=== PATIENT | male | born 1985 | race Caucasian/White ===

== ENCOUNTER 2017-04-09 19:27 | Emergency (ER) | payer SELFPAY ==
[2017-04-09] MEDS ORDERED: diPHENhydraMINE PO* 25 MG PO ONE (20:00)
[2017-04-09] MEDS ORDERED: predniSONE TAB* 20 MG PO ONE (21:18)
--- NOTE | 2017-04-09 21:20 | ED ---
Allergic Reaction/Systemic - HPI Summary HPI Summary: 31M presents with allergic reaction to bee sting on his left arm. no hives anywhere else on his body. no chest pain, abd pain, n/v, difficulty swallowing or SOB. has not taken anything. denies any previous allergies to bee stings. - History of Current Complaint Chief Complaint: EDAllergicReaction Time Seen by Provider: 04/09/17 19:59 Pain Intensity: 3 - Allergies/Home Medications Allergies/Adverse Reactions: Allergies Allergy/AdvReac Type Severity Reaction Status Date / Time No Known Allergies Allergy Verified 04/27/16 16:20 PMH/Surg Hx/FS Hx/Imm Hx Endocrine/Hematology History: Denies: Hx Anticoagulant Therapy, Hx Diabetes, Hx Thyroid Disease Cardiovascular History: Denies: Hx Congestive Heart Failure, Hx Deep Vein Thrombosis, Hx Hypertension , Hx Myocardial Infarction, Hx Pacemaker/ICD Respiratory History: Reports: Hx Asthma - EXERCISE INDUCED Denies: Hx Chronic Obstructive Pulmonary Disease (COPD), Hx Lung Cancer, Hx Pneumonia, Hx Pulmonary Embolism GI History: Denies: Hx Gall Bladder Disease, Hx Gastrointestinal Bleed, Hx Ulcer, Hx Urosepsis History: Denies: Hx Kidney Stones, Hx Renal Disease Musculoskeletal History: Denies: Hx Orthopedic Injury Neurological History: Denies: Hx Dementia, Hx Migraine, Hx Seizures, Hx Transient Ischemic Attacks (TIA) Psychiatric History: Denies: Hx Anxiety, Hx Depression, Hx Schizophrenia, Hx Bipolar Disorder Infectious Disease History: Denies: Hx Clostridium Difficile, Hx Hepatitis, Hx Human Immunodeficiency Virus (HIV), Hx of Known/Suspected MRSA, Hx Shingles, Hx Tuberculosis, Traveled Outside the [place] in Last 30 Days - Family History Known Family History: Positive: Cardiac Disease, Hypertension, Other - grandmother with lupus Negative: Diabetes, Renal Disease - Social History Alcohol Use: None Hx Substance Use: Yes Substance Use Type: Reports: Marijuana Substance Use Comment - Amount & Last Used: "a few times a week" Hx Tobacco Use: Yes Smoking Status (MU): Heavy Every Day Tobacco Smoker Type: Cigarettes Amount Used/How Often: 1 PPD Length of Time of Smoking/Using Tobacco: 13 years Have You Smoked in the Last Year: Yes Review of Systems Negative: Fever Negative: Chest Pain Negative: Shortness Of Breath Positive: Rash All Other Systems Reviewed And Are Negative: Yes Physical Exam Triage Information Reviewed: Yes Vital Signs On Initial Exam: Initial Vitals Temp Pulse Resp BP Pulse Ox 98.7 F 64 18 124/63 98 04/09/17 19:29 04/09/17 19:29 04/09/17 19:29 04/09/17 19:29 04/09/17 19:29 Vital Signs Reviewed: Yes Appearance: Positive: Well-Appearing Skin: Positive: Warm, Dry, Other - 12cm by 6cm area of redness on left arm Head/Face: Positive: Normal Head/Face Inspection Eyes: Positive: Normal, EOMI, MARYELLEN, Conjunctiva Clear ENT: Positive: Normal ENT inspection, Pharynx normal, TMs normal Respiratory/Lung Sounds: Positive: Clear to Auscultation, Breath Sounds Present Cardiovascular: Positive: Normal, RRR Musculoskeletal: Positive: Strength/ROM Intact - left forearm Diagnostics - Vital Signs Vital Signs Temp Pulse Resp BP Pulse Ox 04/09/17 19:29 98.7 F 64 18 124/63 98 - Laboratory Lab Statement: Any lab studies that have been ordered have been reviewed, and results considered in the medical decision making process. Allergic Reaction Course/Dx - Course Course Of Treatment: 31M presents with allergic reaction to bee sting on his left arm. no hives anywhere else on his body. no chest pain, abd pain, n/v, difficulty swallowing or SOB. has not taken anything. denies any previous allergies to bee stings. on exam has 12cm by 6cm area or redness and warmth across left arm. gave bendaryl and steriod and improved. warned of signs to return to ED for. patient understands and agrees with plan. - Diagnoses Differential Diagnosis/HQI/PQRI: Positive: Anaphylaxis, Local Allergic Reaction , Urticaria Provider Diagnoses: Allergic reaction to bee sting Discharge - Discharge Plan Condition: Good Disposition: HOME Prescriptions: predniSONE TAB* [Deltasone TAB*] 40 mg PO DAILY #8 tab Patient Education Materials: Urticaria (ED) Referrals: No Primary Care Phys,NOPCP [Primary Care Provider] - Additional Instructions: Take Benadryl every 6 hours for 24 hours Take ibuprofen every 6 hours for pain Take steroid once a day for 4 more days Return to ED if develop SOB, difficulty swallowing or any new or worsening symptoms
[2017-04-09 21:47] VITALS: BP 118/64
== END 2017-04-09 21:47 | disposition home or self-care (01) ==
LOC: ED 19:27
DX: T63.441A Toxic effect of venom of bees, accidental (unintentional), initial encounter (principal); Y92.9 Unspecified place or not applicable; J45.990 Exercise induced bronchospasm; F12.90 Cannabis use, unspecified, uncomplicated; F17.210 Nicotine dependence, cigarettes, uncomplicated
CPT/HCPCS: 99282; A9270-GY; J7512

== ENCOUNTER 2017-07-06 12:41 | Emergency (ER) | payer SELFPAY ==
[2017-07-06] MEDS ORDERED: Ibuprofen TAB* 800 MG PO ONE (13:23)
--- NOTE | 2017-07-06 13:25 | ED ---
Lower Extremity - HPI Summary HPI Summary: 32M presents with right great toe pain today. He dropped a board on his foot. He has swelling and ecchmoysis between great and 2nd right toe. He denies any numbness or tingling. He is able to ambulate. He denies any previous injury to the area. He denies any other injury. He has not taken anything for pain. pain is minimal until he placed weight on the area. - History of Current Complaint Chief Complaint: EDExtremityLower Stated Complaint: TOE INJURY Time Seen by Provider: 07/06/17 12:56 Pain Intensity: 7 - Allergies/Home Medications Allergies/Adverse Reactions: Allergies Allergy/AdvReac Type Severity Reaction Status Date / Time No Known Allergies Allergy Verified 04/27/16 16:20 PMH/Surg Hx/FS Hx/Imm Hx Endocrine/Hematology History: Denies: Hx Anticoagulant Therapy, Hx Diabetes, Hx Thyroid Disease Cardiovascular History: Denies: Hx Congestive Heart Failure, Hx Deep Vein Thrombosis, Hx Hypertension , Hx Myocardial Infarction, Hx Pacemaker/ICD Respiratory History: Reports: Hx Asthma - EXERCISE INDUCED Denies: Hx Chronic Obstructive Pulmonary Disease (COPD), Hx Lung Cancer, Hx Pneumonia, Hx Pulmonary Embolism GI History: Denies: Hx Gall Bladder Disease, Hx Gastrointestinal Bleed, Hx Ulcer, Hx Urosepsis History: Denies: Hx Kidney Stones, Hx Renal Disease Musculoskeletal History: Denies: Hx Orthopedic Injury Neurological History: Denies: Hx Dementia, Hx Migraine, Hx Seizures, Hx Transient Ischemic Attacks (TIA) Psychiatric History: Denies: Hx Anxiety, Hx Depression, Hx Schizophrenia, Hx Bipolar Disorder Infectious Disease History: No Infectious Disease History: Denies: Hx Clostridium Difficile, Hx Hepatitis, Hx Human Immunodeficiency Virus (HIV), Hx of Known/Suspected MRSA, Hx Shingles, Hx Tuberculosis, Traveled Outside the [place] in Last 30 Days - Family History Known Family History: Positive: Cardiac Disease, Hypertension, Other - grandmother with lupus Negative: Diabetes, Renal Disease - Social History Alcohol Use: None Hx Substance Use: Yes Substance Use Type: Reports: Marijuana Substance Use Comment - Amount & Last Used: "a few times a week" Hx Tobacco Use: Yes Smoking Status (MU): Heavy Every Day Tobacco Smoker Type: Cigarettes Amount Used/How Often: 1 PPD Length of Time of Smoking/Using Tobacco: 13 years Have You Smoked in the Last Year: Yes Review of Systems Negative: Fever Negative: Chest Pain Negative: Shortness Of Breath Positive: Myalgia - right toe injury All Other Systems Reviewed And Are Negative: Yes Physical Exam Triage Information Reviewed: Yes Vital Signs On Initial Exam: Initial Vitals Temp Pulse Resp BP Pulse Ox 99.8 F 69 20 117/67 97 07/06/17 12:52 07/06/17 12:52 07/06/17 12:52 07/06/17 12:52 07/06/17 12:52 Vital Signs Reviewed: Yes Appearance: Positive: Well-Appearing Skin: Positive: Warm, Dry, Other - ecchymosis between right great toe and 2nd toe Head/Face: Positive: Normal Head/Face Inspection Eyes: Positive: Normal, Conjunctiva Clear Respiratory/Lung Sounds: Positive: Clear to Auscultation, Breath Sounds Present Cardiovascular: Positive: Normal, RRR Musculoskeletal: Positive: Strength/ROM Intact - right foot, Edema Right - great toe, Other - ecchymosis between right great toe and 2nd toe, capillary refill<2 secs, sensation grossly intact Neurological: Positive: Normal Psychiatric: Positive: Normal Diagnostics - Vital Signs Vital Signs Temp Pulse Resp BP Pulse Ox 07/06/17 12:52 99.8 F 69 20 117/67 97 - Laboratory Lab Statement: Any lab studies that have been ordered have been reviewed, and results considered in the medical decision making process. - Radiology foot Xray Interpretation: No Acute Changes Radiology Interpretation Completed By: Radiologist Lower Extremity Course/Dx - Course Course Of Treatment: 32M presents with right great toe pain today. He dropped a board on his foot. He has swelling and ecchmoysis between great and 2nd right toe. He denies any numbness or tingling. He is able to ambulate. He denies any previous injury to the area. He denies any other injury. He has not taken anything for pain. pain is minimal until he placed weight on the area. on exam has full ROM toes, capillary refill<2 secs, ecchyomsis between great toe and 2nd toe. xray normal. will treat as contusion with RICE. offered post op shoe or primitivo taping and patient decline. patient understand and agrees with plan. - Diagnoses Differential Diagnosis/HQI/PQRI: Positive: Contusion, Foreign Body, Sprain Provider Diagnoses: Contusion of great toe, right Discharge - Discharge Plan Condition: Good Disposition: HOME Patient Education Materials: Foot Contusion (ED) Referrals: [facility] [place]] Additional Instructions: Take Tylenol or ibuprofen every 6 hours as needed for pain Apply ice, rest, elevate Follow up with primary care physician within 5 days Return to ED if develop any new or worsening symptoms
--- NOTE | 2017-07-06 13:26 | RAD ---
HISTORY: Left great toe injury COMPARISONS: None VIEWS: 3, Frontal, lateral, and oblique views of the right foot FINDINGS: BONE DENSITY: Normal. BONES: There is no displaced fracture. JOINTS: There is no arthropathy. ALIGNMENT: There is no dislocation. SOFT TISSUES: Unremarkable. OTHER FINDINGS: None. IMPRESSION: NO ACUTE OSSEOUS INJURY. IF SYMPTOMS PERSIST, RECOMMEND REPEAT IMAGING.
[2017-07-06 14:27] VITALS: BP 97/58
== END 2017-07-06 14:26 | disposition home or self-care (01) ==
LOC: ED 12:41
DX: S90.111A Contusion of right great toe without damage to nail, initial encounter (principal); M79.674 Pain in right toe(s); F17.210 Nicotine dependence, cigarettes, uncomplicated; W20.8XXA Other cause of strike by thrown, projected or falling object, initial encounter; Y93.9 Activity, unspecified; Y92.9 Unspecified place or not applicable
CPT/HCPCS: 99282; A9270-GY

== ENCOUNTER 2017-11-07 21:47 | Emergency (ER) | payer SELFPAY ==
[2017-11-08 00:49] VITALS: BP 123/81
--- NOTE | 2017-11-24 01:46 | ED ---
Basilio Martines Thomas, scribed for Crow Carrillo MD on 11/08/17 at 0038 . Abdominal Pain/Male - HPI Summary HPI Summary: The patient presents with abdominal pain and a small protrusion near his umbilical area. These symptoms began two days ago when he was lifting concrete. - History of Current Complaint Chief Complaint: EDAbdPain Stated Complaint: ABD PAIN Time Seen by Provider: 11/08/17 00:28 Hx Obtained From: Patient Onset/Duration: Sudden Onset, Lasting Days - 2, Still Present Timing: Constant Severity Currently: Mild Pain Intensity: 3 Pain Scale Used: 0-10 Numeric Location: Umbilical Alleviating Factor(s): Nothing Associated Signs And Symptoms: Negative: Fever - Allergies/Home Medications Allergies/Adverse Reactions: Allergies Allergy/AdvReac Type Severity Reaction Status Date / Time No Known Allergies Allergy Verified 04/27/16 16:20 PMH/Surg Hx/FS Hx/Imm Hx Endocrine/Hematology History: Denies: Hx Anticoagulant Therapy, Hx Diabetes, Hx Thyroid Disease Cardiovascular History: Denies: Hx Congestive Heart Failure, Hx Deep Vein Thrombosis, Hx Hypertension , Hx Myocardial Infarction, Hx Pacemaker/ICD Respiratory History: Reports: Hx Asthma - EXERCISE INDUCED Denies: Hx Chronic Obstructive Pulmonary Disease (COPD), Hx Lung Cancer, Hx Pneumonia, Hx Pulmonary Embolism GI History: Denies: Hx Gall Bladder Disease, Hx Gastrointestinal Bleed, Hx Ulcer, Hx Urosepsis History: Denies: Hx Kidney Stones, Hx Renal Disease Musculoskeletal History: Denies: Hx Orthopedic Injury Neurological History: Denies: Hx Dementia, Hx Migraine, Hx Seizures, Hx Transient Ischemic Attacks (TIA) Psychiatric History: Denies: Hx Anxiety, Hx Depression, Hx Schizophrenia, Hx Bipolar Disorder Infectious Disease History: No Infectious Disease History: Denies: Hx Clostridium Difficile, Hx Hepatitis, Hx Human Immunodeficiency Virus (HIV), Hx of Known/Suspected MRSA, Hx Shingles, Hx Tuberculosis, Traveled Outside the [place] in Last 30 Days - Family History Known Family History: Positive: Cardiac Disease, Hypertension, Other - grandmother with lupus Negative: Diabetes, Renal Disease - Social History Alcohol Use: None Hx Substance Use: Yes Substance Use Type: Reports: Marijuana Substance Use Comment - Amount & Last Used: "a few times a week" Hx Tobacco Use: Yes Smoking Status (MU): Heavy Every Day Tobacco Smoker Type: Cigarettes Amount Used/How Often: 1 PPD Length of Time of Smoking/Using Tobacco: 13 years Have You Smoked in the Last Year: Yes Review of Systems Negative: Fever Positive: Abdominal Pain, Other - Abd protrusion All Other Systems Reviewed And Are Negative: Yes Physical Exam - Summary Physical Exam Summary: VITAL SIGNS: Reviewed. GENERAL: Patient is a well-developed and nourished male who is lying comfortable in the stretcher. Patient is not in any acute respiratory distress. HEAD AND FACE: No signs of trauma. No ecchymosis, hematomas or skull depressions. No sinus tenderness. EYES: PERRLA, EOMI x 2, No injected conjunctiva, no nystagmus. EARS: Hearing grossly intact. Ear canals and tympanic membranes are within normal limits. MOUTH: Oropharynx within normal limits. NECK: Supple, trachea is midline, no adenopathy, no JVD, no carotid bruit, no c- spine tenderness, neck with full ROM. CHEST: Symmetric, no tenderness at palpation LUNGS: Clear to auscultation bilaterally. No wheezing or crackles. CVS: Regular rate and rhythm, S1 and S2 present, no murmurs or gallops appreciated. ABDOMEN: He has a small defect at his umbilicus consistent with a hernia. There are no contents felt. Soft, non-tender. No signs of distention. No rebound no guarding, and no masses palpated. Bowel sounds are normal. EXTREMITIES: FROM in all major joints, no edema, no cyanosis or clubbing. NEURO: Alert and oriented x 3. No acute neurological deficits. Speech is normal and follows commands. SKIN: Dry and warm Triage Information Reviewed: Yes Vital Signs On Initial Exam: Initial Vitals Temp Pulse Resp BP Pulse Ox 99.3 F 65 16 127/85 96 11/07/17 21:58 11/07/17 21:58 11/07/17 21:58 11/07/17 21:58 11/07/17 21:58 Vital Signs Reviewed: Yes Diagnostics - Vital Signs Vital Signs Temp Pulse Resp BP Pulse Ox 11/08/17 00:07 98.1 F 65 20 117/85 97 11/07/17 21:58 99.3 F 65 16 127/85 96 - Laboratory Lab Statement: Any lab studies that have been ordered have been reviewed, and results considered in the medical decision making process. Re-Evaluation - Re-Evaluation First Eval Comment: Patient re-evaluated. He will be discharged. Abdominal Pain Fem Course/Dx - Course Assessment/Plan: The patient presents with abdominal pain and a small protrusion near his umbilical area. These symptoms began two days ago when he was lifting concrete. He has a small defect at his umbilicus consistent with a hernia. There are no contents felt. The patient is diagnosed with ventral/ umbilical The patient will be discharged home with follow up with surgery. - Diagnoses Provider Diagnoses: Umbilical/ventral hernia Discharge - Sign-Out/Discharge Documenting (check all that apply): Discharge - Discharge Plan Condition: Stable Disposition: HOME Patient Education Materials: Umbilical Hernia (ED), Ventral Hernia (ED) Referrals: Rajeev Pierre MD [Medical Doctor] - 3 Days Additional Instructions: Follow up with Dr. Pierre, surgery, in three days. Return to the emergency department for any new or worsening symptoms. The documentation as recorded by the Basilio schneider Thomas accurately reflects the service I personally performed and the decisions made by , Crow Carrillo MD.
== END 2017-11-08 00:48 | disposition home or self-care (01) ==
LOC: ED 21:47
DX: K43.9 Ventral hernia without obstruction or gangrene (principal); R10.9 Unspecified abdominal pain; F17.210 Nicotine dependence, cigarettes, uncomplicated
CPT/HCPCS: 99282

== ENCOUNTER 2017-12-20 05:58 | Day surgery (SDC) | payer MEDICAID, OTHER ==
--- NOTE | 2017-12-11 09:27 | HP ---
ADMISSION HISTORY AND PHYSICAL: DATE OF ADMISSION: 12/20/17 ATTENDING SURGEON: Dr. Neno Van* (dictated by ISA Rojas). CHIEF COMPLAINT: Umbical hernia. HISTORY OF PRESENT ILLNESS: This is a generally healthy 32-year-old male who presented to our office on 11/13/17 with a 1 week complaint of umbilical discomfort and swelling. This had occurred after fairly strenuous activity. The bulge seemed to self-reduce and since then has remained reduced, though he has modified his activity level. He did have some fleeting nausea at the time of the bulge, but not since and nothing else to suggest incarceration or strangulation. He was seen in the office by Dr. Van on 11/13/17 at which time exam revealed a nontender reducible umbilical hernia. There were no palpable inguinal hernias. There were no other abdominal masses or tenderness. Dr. Van discussed with him the indications for repair, the risks, benefits and alternatives and the potential use for mesh for repair. The patient would like to proceed as scheduled with open repair of umbilical hernia with possible mesh. PAST MEDICAL HISTORY: He is an active smoker who is trying to quit. He does have past history of opioid abuse, but none in the past 2 years. PAST SURGICAL HISTORY: Previous surgeries: None other than laceration repair. MEDICATIONS: Current medications, none. ALLERGIES: Drug allergies, none. FAMILY HISTORY: He states that his mother has difficulty with general anesthesia, though he is not certain of the details. There is no known family history of bleeding or clotting disorder. SOCIAL HISTORY: Patient lives with a roommate. 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 He currently smokes up to 1 pack per day, though he is attempting to quit again after having quit for a month recently. He has smoked since age 13 between one- half and one pack per day. He is encouraged in his efforts to quit. He denies use of alcohol. He denies any recreational drug use, but does have background history of opioid abuse. REVIEW OF SYSTEMS: General: No recent constitutional symptoms or acute illnesses. Weight has been stable. Eyes: No recent changes in vision. Ears, Nose, Throat: No problems reported. He does have some missing teeth, but no recent concerns. Cardiovascular: No history of palpitations, chest pain or heart murmur. Respiratory: Smoking history as noted. He does relate some history of "asthma" that he attributes to smoking as he was never treated for asthma as a child and symptoms improved when he did quit recently for 1 month. GI: No problems reported. : No problems reported. Endocrine: No diabetes or thyroid dysfunction. All other review of systems are negative. PHYSICAL EXAMINATION GENERAL: Well-nourished, well-developed male, in no acute distress. VITAL SIGNS: Height 69 inches, weight 135 pounds, blood pressure 98/60, pulse 62. SKIN: Warm and dry. No suspicious rashes or lesions. HEENT: Pupils are equal, round and reactive. EOMs intact. Conjunctivae pink. Oropharynx: Some missing teeth. Remaining teeth in fair and good repair. No intraoral lesions. NECK: No lymphadenopathy, thyromegaly or masses. Specifically, no lymphadenopathy in the cervical or supraclavicular regions. LUNGS: Clear to auscultation. No rales or wheezes. HEART: Regular rate and rhythm. No murmur noted. ABDOMEN: Flat, nondistended, soft, nontender to palpation. There is a fingertip defect palpable at the umbilicus. There is no herniation at the present time. The area is nontender at present. Per Dr. Van's exam, no palpable inguinal hernia. GENITALIA: Otherwise not reexamined. EXTREMITIES: No edema. RECTAL: Not done. BACK: No spinous processes or CVA tenderness. NEUROLOGIC: Grossly intact. IMPRESSION: Umbilical hernia. PLAN/RECOMMENDATIONS: Open repair of umbilical hernia with possible mesh. The patient does not have a primary care provider. ISA ROJAS [id number]/[facility] #: [id number] MTDLuis Manuel
[~2017-12-20 05:58] MED LIST: Buffered Lidocaine 0.9% SYRIN* 5 ML/SYR SYRINGE INTRADERM ONE
[2017-12-20] MEDS ORDERED: Dexamethasone IV* 4 MG/ML 1 ML (4 MG) IV SLOW PU ONE (06:00)
[2017-12-20] MEDS ORDERED: Levalbuterol 0.63MG/3ML NEB* UNIT OF USE INH ONE ×2 (06:00→06:04)
[2017-12-20] MEDS ORDERED: ceFAZolin 2 GM PREMIX (*) 2 GM/50 ML BAG IVPB ONE (06:04)
[2017-12-20] MEDS ORDERED: Dexamethasone IV* 4 MG/ML 1 ML (4 MG) ONE (06:04)
[2017-12-20] MEDS ORDERED: Buffered Lidocaine 0.9% SYRIN* 5 ML/SYR SYRINGE ONE (06:04)
[2017-12-20] MEDS ORDERED: fentaNYL* 50 MCG/ML 2 ML VIAL (100 MCG VIAL) ONE (06:54)
[2017-12-20] MEDS ORDERED: Midazolam* 1 MG/ML 2 ML VIAL (2 MG) ONE (06:55)
[2017-12-20] MEDS ORDERED: Lidocaine 1% MPF wEPI 200,000* 30 ML SDV ONE (07:09)
[2017-12-20] MEDS ORDERED: Bupivacaine 0.5%* 50 ML VIAL ONE (07:10)
[2017-12-20] MEDS ORDERED: Bacitracin OINTMENT* 0.5% 0.5 oz TUBE ONE (07:10)
[2017-12-20] MEDS ORDERED: Acetaminophen IV 1GM/100ML * 1,000 MG/100 ML VIAL IVPB ONE (07:15)
[2017-12-20] MEDS ORDERED: fentaNYL* 50 MCG/ML 2 ML VIAL (100 MCG VIAL) IV PRN (07:15)
[2017-12-20] MEDS ORDERED: Naloxone* 0.4 MG/ML 1 ML VIAL IV PRN (07:15)
[2017-12-20] MEDS ORDERED: oxyCODONE TAB* 5 MG TAB PO PRN (07:15)
[2017-12-20] MEDS ORDERED: Ondansetron INJ* 2 MG/ML VIAL IV PRN (07:15)
[2017-12-20] MEDS ORDERED: diPHENhydraMINE IV* 50 MG/ML 1 ml VIAL (BENADRYL) IV PRN (07:15)
[2017-12-20] MEDS ORDERED: KETAMINE HCL* 50 MG/ML 10 ML VIAL ONE (07:32)
[2017-12-20] MEDS ORDERED: Propofol* 500 MG/50 ML BTL ONE (07:43)
[2017-12-20] MEDS ORDERED: Lidocaine 2% PF * 5 ML VIAL ONE (07:43)
[2017-12-20] MEDS ORDERED: Ketorolac INJ* 30 MG/ML 1 ML VIAL ONE (07:47)
--- NOTE | 2017-12-20 08:05 | BRIEFOPN ---
Brief Operative Note - Surgery Procedures: Procedures Pre-OP Diagnoses: umbilical hernia Post-op Diagnosis: same Procedure: open umbilical hernia repair with mesh Surgeon: Carlota Asst: Nadege Anethesia: Local MAC EBL: minimal IVF: 700cc LR Specimen: none Drains: none
[2017-12-20 08:37] VITALS: BP 111/76
--- NOTE | 2017-12-20 22:29 | OP ---
DATE OF OPERATION: 12/20/17 - SDS DATE OF : 83 SURGEON: Neno Van MD. BRICKMASON CONTRACTOR: Tiana Light NP. ANESTHESIA: Local, MAC anesthesia. PRE-OP DIAGNOSIS: Umbilical hernia. POST-OP DIAGNOSIS: Umbilical hernia. OPERATIVE PROCEDURE: Umbilical hernia repair with mesh. SPECIMEN: None. DRAINS: None. FLUIDS: 700 cc of lactated Ringer's. ESTIMATED BLOOD LOSS: Minimal. DESCRIPTION OF PROCEDURE: The patient was identified in the preoperative area, brought to the operating room, placed on the operating table in a supine position. Preoperative antibiotics were given. Sequential devices were placed on bilateral lower extremities. Gentle sedation was given. The patient's abdomen was prepped and draped in standard surgical fashion and a time-out was performed. Infraumbilical incision was made. This was deepened down to the hernia sac which was sharply incised and fascia was identified both superior and inferior to the hernia defect, which was approximately 1.5 cm. We cleaned up the edges and placed a 4.2 cm Ventralex mesh into the space. This was intraabdominally placed and allowed to open up. It was tacked superiorly and inferiorly with 0 Vicryl sutures. The wound was then irrigated and we cut the tails of the mesh and tacked down the umbilical skin with a 2-0 Vicryl and closed the incision with 3-0 Vicryl, followed by 4-0 Monocryl subcuticular sutures. Steri-Strips and sterile dressing were applied. The patient tolerated the procedure well and was transferred to the PACU in stable condition. [id number]/[facility] #: [id number] MTDD
== END 2017-12-20 08:57 | disposition home or self-care (01) ==
LOC: OR 05:58
PROVIDERS: ATTEND Surgery
DX: K42.9 Umbilical hernia without obstruction or gangrene (principal); F17.210 Nicotine dependence, cigarettes, uncomplicated; F11.11 Opioid abuse, in remission
CPT/HCPCS: A9270-GY; C1781; J0690; J1100; J1885; J2001; J2250; J2704; J3010

== ENCOUNTER 2018-08-14 05:11 | Emergency (ER) | payer OTHER ==
[2018-08-14] MEDS ORDERED: Cephalexin CAP* 500 MG PO ONE (05:53)
[2018-08-14] MEDS ORDERED: oxyCODONE/Acetamin 5/325 MG* TAB PO ONE (05:54)
--- NOTE | 2018-08-14 05:58 | ED ---
Laceration/Wound HPI - HPI Summary HPI Summary: This patient is a 33 year old male presenting to [facility] accompanied by family with a chief complaint of a hand puncture laceration since 0100 today. 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 The wound was dressed. The pain is rated 7/10 in severity. Symptoms aggravated by nothing. Symptoms alleviated by nothing. Patient denies any other medical symptoms. Patient states his tetanus is intact. - History of Current Complaint Stated Complaint: HAND LAC Time Seen by Provider: 08/14/18 05:46 Hx Obtained From: Patient Mechanism of Injury: Sharp/Blunt Trauma Onset/Duration: Lasting Hours, Still Present Aggravating: Nothing Alleviating: Nothing Timing: Constant Onset Severity: Moderate Pain Intensity: 7 Pain Scale Used: 0-10 Numeric - Allergy/Home Medications Allergies/Adverse Reactions: Allergies Allergy/AdvReac Type Severity Reaction Status Date / Time lactose AdvReac Intermediate GI Upset Verified 08/14/18 05:18 Home Medications: Home Medications Amoxicillin 500 MG CAP* 500 mg PO TID 08/14/18 [History Confirmed 08/14/18] PMH/Surg Hx/FS Hx/Imm Hx Previously Healthy: No Endocrine/Hematology History: Denies: Hx Anticoagulant Therapy, Hx Diabetes, Hx Thyroid Disease Cardiovascular History: Denies: Hx Congestive Heart Failure, Hx Deep Vein Thrombosis, Hx Hypertension , Hx Myocardial Infarction, Hx Pacemaker/ICD Respiratory History: Reports: Hx Asthma - EXERCISE INDUCED vs smoking induced Denies: Hx Chronic Obstructive Pulmonary Disease (COPD), Hx Lung Cancer, Hx Pneumonia, Hx Pulmonary Embolism GI History: Reports: Other GI Disorders - umbilical hernia Denies: Hx Gall Bladder Disease, Hx Gastrointestinal Bleed, Hx Ulcer, Hx Urosepsis History: Denies: Hx Kidney Stones, Hx Renal Disease Musculoskeletal History: Reports: Hx Arthritis Denies: Hx Orthopedic Injury Sensory History: Reports: Hx Contacts or Glasses - glasses Denies: Hx Hearing Aid Opthamlomology History: Reports: Hx Contacts or Glasses - glasses Neurological History: Denies: Hx Dementia, Hx Migraine, Hx Seizures, Hx Transient Ischemic Attacks (TIA) Psychiatric History: Denies: Hx Anxiety, Hx Depression, Hx Schizophrenia, Hx Bipolar Disorder - Cancer History Hx Chemotherapy: No - Surgical History Surgery Procedure, Year, and Place: laceration in knee cap- local Hx Anesthesia Reactions: No Infectious Disease History: No Infectious Disease History: Denies: Hx Clostridium Difficile, Hx Hepatitis, Hx Human Immunodeficiency Virus (HIV), Hx of Known/Suspected MRSA, Hx Shingles, Hx Tuberculosis, Traveled Outside the [place] in Last 30 Days - Family History Known Family History: Positive: Cardiac Disease, Hypertension, Other - grandmother with lupus Negative: Diabetes, Renal Disease - Social History Lives: With Family Alcohol Use: None Hx Substance Use: Yes Substance Use Type: Reports: Marijuana Substance Use Comment - Amount & Last Used: "a few times a week" Hx Tobacco Use: Yes Smoking Status (MU): Heavy Every Day Tobacco Smoker Type: Cigarettes Amount Used/How Often: 1 PPD smoking for 14 years Length of Time of Smoking/Using Tobacco: 13 years Have You Smoked in the Last Year: Yes Review of Systems Negative: Fever Positive: Other - puncture wound to left hand All Other Systems Reviewed And Are Negative: Yes Physical Exam - Summary Physical Exam Summary: VITAL SIGNS: Reviewed. GENERAL: Patient is a well-developed and nourished male who is lying comfortable in the stretcher. Patient is not in any acute respiratory distress. HEAD AND FACE: No signs of trauma. No ecchymosis, hematomas or skull depressions. No sinus tenderness. EYES: PERRLA, EOMI x 2, No injected conjunctiva, no nystagmus. EARS: Hearing grossly intact. Ear canals and tympanic membranes are within normal limits. MOUTH: Oropharynx within normal limits. NECK: Supple, trachea is midline, no adenopathy, no JVD, no carotid bruit, no c- spine tenderness, neck with full ROM. CHEST: Symmetric, no tenderness at palpation LUNGS: Clear to auscultation bilaterally. No wheezing or crackles. CVS: Regular rate and rhythm, S1 and S2 present, no murmurs or gallops appreciated. ABDOMEN: Soft, non-tender. No signs of distention. No rebound no guarding, and no masses palpated. Bowel sounds are normal. EXTREMITIES: FROM in all major joints, no edema, no cyanosis or clubbing. 1cm puncture wound over the left thenar eminence. NEURO: Alert and oriented x 3. No acute neurological deficits. Speech is normal and follows commands. Neuro exam on hand is intact. SKIN: Dry and warm Triage Information Reviewed: Yes Vital Signs On Initial Exam: Initial Vitals Temp Pulse Resp BP Pulse Ox 98.8 F 64 16 114/58 96 08/14/18 05:13 08/14/18 05:13 08/14/18 05:13 08/14/18 05:13 08/14/18 05:13 Vital Signs Reviewed: Yes Diagnostics - Vital Signs Vital Signs Temp Pulse Resp BP Pulse Ox 08/14/18 05:13 98.8 F 64 16 114/58 96 - Laboratory Lab Statement: Any lab studies that have been ordered have been reviewed, and results considered in the medical decision making process. Laceration Repair Course/Dx - Course Course Of Treatment: This patient is a 33 year old male presenting to [facility] accompanied by family with a chief complaint of a hand puncture laceration since 0100 today. 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 The wound was dressed. The pain is rated 7/10 in severity. Wound was cleaned and irrigated. Patient will be discharged with a dx of puncture wound. Patient is advised to follow up with PCP in 2 days. The patient is agreeable with this plan. - Clinical Impression Provider Diagnoses: Puncture wound of left hand Discharge - Sign-Out/Discharge Documenting (check all that apply): Patient Departure - Discharge Plan Condition: Stable Disposition: HOME Patient Education Materials: Compartment Syndrome (DC), Puncture Wound (ED) Referrals: No Primary Care Phys,NOPCP [Primary Care Provider] - Additional Instructions: Return to the ED for any new or worsening symptoms. - Attestation Statements Document Initiated by Scribe: Yes Documenting Scribe: Dante Payne Provider For Whom Scribe is Documenting (Include Credential): Crow Carrillo MD Scribe Attestation: Dante Martines, carmitaed for Crow Carrillo MD on 08/14/18 at 0556. Status of Scribe Document: Ready
[2018-08-14 06:13] VITALS: BP 121/71
== END 2018-08-14 06:12 | disposition home or self-care (01) ==
LOC: ED 05:11
DX: S61.432A Puncture wound without foreign body of left hand, initial encounter (principal); W29.8XXA Contact with other powered hand tools and household machinery, initial encounter; Y92.9 Unspecified place or not applicable; F17.210 Nicotine dependence, cigarettes, uncomplicated
CPT/HCPCS: 99283; A9270-GY